=== PATIENT | male | born 1970 | race Caucasian/White ===

== ENCOUNTER → 2017-05-27 | Outpatient (CLI) | payer OTHER ==
--- NOTE | 2017-05-27 10:43 | DIAGNOSTIC IMAGING REPORT ---
RIGHT KNEE 3 VIEWS CLINICAL HISTORY: Medial knee pain. FINDINGS: AP, lateral, and sunrise views of the right knee are obtained. No prior studies are available for comparison at the time of dictation. The skeletal structures are well mineralized. No fracture is seen. There is mild degenerative narrowing in the medial and patellofemoral compartments. A calcified fabella is incidentally noted. Patellar enthesophytes are observed. No large joint effusion is identified. The overlying soft tissues are within normal limits. IMPRESSION: No acute bony abnormality is seen in the right knee. Electronically signed by: Kerwin Thapa M.D. 05/27/2017 10:42 AM Dictated Date/Time: 05/27/2017 10:41 AM
== END | disposition home or self-care (01) ==
LOC: C.RAD1850 09:56
PROVIDERS: ATTEND Nurse Practitioner Adult Health
DX: M25.561 Pain in right knee (principal)

== ENCOUNTER 2024-02-13 06:52 | Observation (INO) ==
--- NOTE | 2024-01-02 12:09 | PAT Medication Instructions ---
Medication Instructions Date of Service January 02, 2024 Home Medications aspirin 325 mg tablet 325 mg PO DAILY PRN Pain multivitamin 1 tab PO DAILY cholecalciferol (vitamin D3) 50 mcg (2,000 unit) capsule (Vitamin D3) 50 mcg PO DAILY ASK your prescriber and surgeon aspirin 325 mg tablet 325 mg PO DAILY PRN Pain DO NOT take the morning of surgery multivitamin 1 tab PO DAILY cholecalciferol (vitamin D3) 50 mcg (2,000 unit) capsule (Vitamin D3) 50 mcg PO DAILY NOTHING TO EAT OR DRINK AFTER MIDNIGHT Other Notes If you have any questions please call us at [phone] or [phone] or [phone] or [phone]
--- NOTE | 2024-01-13 13:57 | Anesthesiology Consultation ---
Date of Service January 13, 2024 Assessment & Plan (1) Encounter for pre-operative examination: - Infectious disease screening: Per assessment on 01/13/24: No known recent infectious disease contacts or current infectious disease symptoms. - Outpatient joint assessment: Pt currently scheduled for inpatient pathway. If surgeon requests review for outpatient joint pathway, patient is an acceptable candidate for outpatient joint program from anesthesia standpoint pending surgeon's office assessment that patient is motivated, has good support and completes [facility] Day [facility] Program preop requirements. Chart Review Chart Review: Acceptable Risk for Surgery and Patient seen in Pre Admission Testing Teaching & Discussion Pre-Anesthesia Teaching/Discussion Notes: Instructed NPO after midnight before surgery,except medications with 15 cc of water. Medication instructions provided according to the PAT guidelines. History Surgery Operation Date: 02/13/24 11:10 Proposed Procedures p Left Total Knee Arthroplasty - Dami Andujar DO Height/Weight Height: 5 ft 11 in Weight: 98.9 kg Allergies Allergy/AdvReac Type Severity Reaction Status Date / Time No Known Allergies Allergy Verified 01/02/24 10:55 Medications Home Medications Medication Instructions Recorded Confirmed Last Taken aspirin 325 mg tablet 325 mg PO DAILY PRN Pain 09/25/20 01/02/24 Unknown multivitamin 1 tab PO DAILY 09/25/20 01/02/24 Unknown cholecalciferol (vitamin D3) 50 50 mcg PO DAILY 01/02/24 01/02/24 Unknown mcg (2,000 unit) capsule (Vitamin D3) Fish Oil 1 tab PO DAILY 01/13/24 01/13/24 Unknown Past Medical History Medical History Circadian rhythm sleep disorder History of COVID-2019 Osteoarthritis Exercise / Class Metabolic Activity II 4-5 Yardwork/Stairs/Walk up hill Past Family History Family History Denies family history of Ovarian cancer Prostate cancer Myocardial infarction Breast cancer Colorectal cancer Past Surgical History Surgical History History of knee surgery Right x 2 Meniscus tear History of tooth extraction Past Anesthesia History No Hx of Anesthesia Complications and No Family Hx of Anesthesia Complications History of PONV No Hx of PONV and No Hx of Motion Sickness Social History Smoking Status: Former smoker Smoking cigarettes per day: Quit years ago Do You Dip or Chew Tobacco: No Hx Alcohol Use: Yes Alcohol type: beer alcohol intake frequency: holidays/special occasions only Hx Substance Use: No substance use type: does not use Review of Systems + Snoring. No witness apnea. Patient denies chest pain, shortness of breath, dyspnea on exertion, fever, chills, cough, wheezing, palpitations. Physical Exam Vital Signs BP 112/74 P 55 TEMP 98.3 SP02 97%RA RESP 16 Physical Full cervical extension range of motion. Full TMJ range of motion. TMD > 3.5 finger breaths Mallampati Score II Dentition: missing molars, possible left upper crown on molar (patient states thinks it "fell out") Lungs: clear throughout to auscultation Cardiac: regular rate and rhythm, no murmurs noted Spine: normal Carotid arteries: negative bruit Extremities: no LE edema Lab Results Anesthesia Preop Results Results Anesthesia Widget: WBC 9.09 K/ul (4.8-10.8) 01/13/24 Hgb 14.0 g/dl (14.0-18.0) 01/13/24 Hct 42.3 % (42.0-52.0) 01/13/24 Plt 252 K/uL (130-400) 01/13/24 Na 137 mmol/L (136-145) 01/13/24 K 4.2 mmol/L (3.5-5.1) 01/13/24 Cl 102 mmol/L (98-107) 01/13/24 CO2 29 mmol/L (21-32) 01/13/24 BUN 20 mg/dl (6-23) 01/13/24 Creat 1.03 mg/dl (0.6-1.4) 01/13/24 Glucose Level 124 mg/dl (70-99(Fasting)) H 01/13/24 PT 10.4 Seconds (9.0-12.0) 01/13/24 PTT 28 Seconds (21-31) 01/13/24 INR 1.0 (0.9-1.1) 01/13/24 Blood Type O Positive 01/13/24 Antibody Screen NEGATIVE 01/13/24 Testing Electrocardiogram Date: 01/13/24 SB at 56bpm. "Otherwise normal ECG" Chest X-Ray Date: 01/18/24 Findings: + NAD
--- NOTE | 2024-02-09 09:23 | History & Physical Report ---
Date of Service February 09, 2024 Assessment & Plan (1) Osteoarthritis of left knee: We will proceed with a left total knee arthroplasty. Postoperatively she will be started on aspirin for DVT prophylaxis and kept overnight in the hospital for postop medical management. She plans to use energy physical therapy upon discharge. History of Present Illness Chief Complaint: Osteoarthritis of the left knee. Primary Care Provider: Melanie Warren MD Sona is a pleasant 53-year-old male who has been dealing with chronic bilateral knee pain left worse than right. He has a history of 2 prior meniscal surgeries to his left knee. Unfortunately, he isstill dealing with a lot of medial sided knee pain. It is to the point where he ishaving trouble doing simple a ctivities. He is having trouble going up and down stairs. He is missing time from work. X-rays and clinical examination been diagnostic for advanced arthritis of the left knee. After failing conservative treatment, she has elected to proceed with a left total knee arthroplasty. Allergies Allergy/AdvReac Type Severity Reaction Status Date / Time No Known Allergies Allergy Verified 01/02/24 10:55 Home Medications Medication Instructions Recorded Confirmed Type aspirin 325 mg tablet 325 mg PO DAILY PRN Pain 09/25/20 01/02/24 History multivitamin 1 tab PO DAILY 09/25/20 01/02/24 History cholecalciferol (vitamin D3) 50 50 mcg PO DAILY 01/02/24 01/02/24 History mcg (2,000 unit) capsule (Vitamin D3) Fish Oil 1 tab PO DAILY 01/13/24 01/13/24 History Past Med/Surg History Problem List Encounter for pre-operative examination Epicondylitis, lateral (tennis elbow) Medical History History of ID2019 Circadian rhythm sleep disorder Osteoarthritis Surgical History History of tooth extraction History of knee surgery Right x 2 Meniscus tear Family History Denies family history of Ovarian cancer Prostate cancer Myocardial infarction Breast cancer Colorectal cancer Social History (Reviewed 02/09/24 @ 09:22 by MARIBELL Ingram Smoking Status: Former smoker Tobacco Type: E-cigarettes / Vaping Cigarettes Per Day: Quit years ago; Second Hand Exposure: No; Do You Dip or Chew Tobacco: No; Tobacco Cessation Education Requested by Patient: No Hx Alcohol Use: Yes Alcohol type: beer Alcohol Intake Frequency: Monthly or Less Hx Substance Use: No Preferred Language: Polish Communication Ability: Effective Protective Services Case Worker Required: No Beliefs That Will Affect Care: None marital status: Current Living Situation: Family current occupational status: employed Other Information That Helps Us Care for You: No Feels Safe at Home: Yes Safety Concerns: Feels Safe At This Time caffeine: Yes (Soda) Dental Care, Regularly: No Physical Activity Frequency: Daily Seatbelt Use: always Sunscreen Use: No Assistive Devices: Cane and Glasses Review of Systems All systems reviewed & are unremarkable except as noted in HPI & below. Physical Exam Physical examination of the left knee, she has a slight varus deformity. She has tenderness palpation of the distal medial femoral condyle and over the medial joint line.. Constitutional WD/WN, vitals as above Eyes PERRL, conjunctivae normal, anicteric sclerae ENMT external ear and nose normal, oropharynx normal Neck trachea midline, no thyromegaly Respiratory normal respiratory effort Cardiovascular RRR, no murmur, no edema Gastrointestinal (Abdomen) normal bowel sounds, soft, nontender, no hepatosplenomegaly Psychiatric A+Ox3, euthymic affect Results & Data Results & Data Laboratory Results . Diagnostic Findings X-rays of the left knee show advanced osteoarthritis with joint space narrowing, osteophyte summation, and [id number] articulation. PG Care Time/CCT Total # of Minutes Spent Total Time Spent with Patient: Total time spent is greater than 50% in coordination of care (as documented) at patient's floor/unit and/or counseling patient: Coding Level of Care Code None Diagnoses Osteoarthritis of left knee M17.12
[2024-02-13] MEDS ORDERED: ROPIVACAINE 0.5% 5 MG/ML 30 ML VIAL ONE (07:10)
[2024-02-13] MEDS: LR 500ML BOLUS, THEN 15ML/HR IV SCH (07:35)
[2024-02-13] MEDS: dexAMETHasone**PF** 10 MG/ML VIAL IV SCH (07:36)
[2024-02-13] MEDS: GABAPENTIN 900 MG DOSE PO SCH (07:36)
[2024-02-13] MEDS: FAMOTIDINE 20 MG TAB PO SCH (07:36)
[2024-02-13] MEDS: ACETAMINOPHEN 500 MG TAB PO SCH ×2 (07:37→13:26)
[2024-02-13] MEDS ORDERED: fentaNYL citrate PF 100 MCG/2 ML VIAL ONE (07:38)
[2024-02-13] MEDS ORDERED: MIDAZOLAM HCL 1 MG/ML 2ML VIAL ONE (07:40)
[2024-02-13] MEDS ORDERED: PROPOFOL IV EMULSION 10 MG/ML 20 ML VIAL IV ONE (07:41)
[2024-02-13] MEDS ORDERED: ONDANSETRON INJ 2 MG/ML 2 ML VIAL ONE (07:41)
--- NOTE | 2024-02-13 08:08 | History & Physical Bridge Note ---
Date of Service February 13, 2024 History & Physical Bridge Note I have examined the patient, reviewed the History & Physical and in the interval since the performance of the History & Physical I have noted the following changes of clinical significance: no changes noted
[2024-02-13] MEDS ORDERED: ONDANSETRON INJ 2 MG/ML 2 ML VIAL IV PRN ×2 (08:38→12:48)
[2024-02-13] MEDS ORDERED: fentaNYL citrate PF 100 MCG/2 ML VIAL IV PRN (08:38)
[2024-02-13] MEDS ORDERED: KETOROLAC 30 MG/ML VIAL IV PRN (08:38)
[2024-02-13] MEDS ORDERED: ePHEDrine sulfate 50 MG/ML AMP IV PRN (08:38)
[2024-02-13] MEDS ORDERED: ATROPINE SULFATE 0.1 MG/ML 10ML SYR IV PRN (08:38)
[2024-02-13] MEDS: TRANEXAMIC ACID 1,000 MG **IV Pre-op IV SCH (08:53)
[2024-02-13] MEDS: ceFAZolin 2000MG 2,000 MG/15 ML SYR IV SCH ×2 (09:06→16:46)
[2024-02-13] MEDS: ORTHO JOINT ANESTHETIC ONE (09:41)
[2024-02-13] MEDS ORDERED: SODIUM CHLORIDE 0.9% PF INJ 10 ML VIAL ONE (09:45)
[2024-02-13] MEDS ORDERED: ePHEDrine sulfate 50 MG/ML AMP ONE (09:45)
[2024-02-13] MEDS: ROPIV 0.5% 246mg, Ketorolac 30mg, EPINEPHrine 0.5mg in NSS INFIL SCH (10:05)
[2024-02-13] MEDS: TRANEXAMIC ACID 1,000 MG **IV Intra-op IV SCH (10:09)
--- NOTE | 2024-02-13 10:13 | Operative Report ---
PG Post Operative Report Pre & Post Diagnosis Operation Date: 02/13/24 09:00 Pre-Op Diagnosis: Osteoarthritis of left knee Post-Op Diagnosis: Osteoarthritis of left knee I identified the patient and participated in the time-out.: Yes Procedure Operation Date: 02/13/24 09:00 Actual Procedures p Left Total Knee Arthroplasty(Left) - Dami Andujar DO Surgeon Dami Andujar DO Auto Mechanic Dami Cummings PA-C Estimated Blood Loss 30 Findings Consistent with Post-Op Diagnosis Specimens Left femoral and tibial bone Description of Procedure Implants used: I used a Rashaun Persona total knee arthroplasty system with a size 9 standard PS femur, F tibia, 34 oval patella, and a size 12 CPS polyethylene bearing. All components were cemented in place with Biomet cement. Sona arrived [facility] for the above procedure. He was seen in the preoperative holding area and the operative extremity was identified and signed. He was given a preoperative antibiotic, TXA, a spinal anesthetic and an adductor nerve block. He was taken back to the operating room and laid on the table in supine position. He was given basic sedation. The operative knee was then prepped and draped in sterile fashion. A timeout was done, and the patient and the operative extremity was properly identified. A midline incision was made directly over the patella. Dissection was taken down to the extensor mechanism. A subvastus arthrotomy was used. The medial retinaculum was released and the fat pad was mostly excised. The knee was flexed and the ACL, PCL, and meniscus were removed. A drill was sent down the center of the femoral canal followed by an intramedullary kimber. Off that kimber a distal femoral cutting block was placed. 9 mm was resected off the distal femur at 5 of valgus. A posterior referencing AP sizing guide was then placed on the distal femur. The femur measured to be a size 9. 2 drill holes were placed in 3 of external rotation. A 4-in-1 cutting block was then impacted into place. Anterior, posterior, and chamfer cuts were then made. The proximal tibia was then exposed. An external tibial alignment guide was placed. A tibial cut guide was then anchored in place and the proximal tibia was then resected. The posterior aspect of the knee was then opened up and any additional meniscus fragments and osteophytes were removed. The tibia measured to be a size F. The tibial plate was then placed in the appropriate rotation and the tibia was drilled and punched. Trial components were then placed. I used a size 12 CPS polyethylene insert. The knee was brought through a full range of motion and felt to be stable. The peg holes for the femoral component were then drilled. The patella was then everted and 9 mm was resected off the posterior aspect of the patella. The patella measured to be a size 34 oval. 3 peg holes were then drilled. A trial patella was placed. The knee was once again brought through a full range of motion and felt to be stable. Trial components were then removed. The surrounding soft tissues were injected with 100 cc of an orthopedic pain control cocktail. All components were then cemented into place with Biomet cement. The final polyethylene insert was then snapped into place. Once cement was dry the tourniquet was deflated. Hemostasis was obtained. A dilute betadyne lavage was then done for 3 minutes. The joint was then irrigated with normal saline solution. The subvastus arthrotomy was then closed with #1 Vicryl suture. The skin was closed with 2-0 Vicryl, 3-0V lock suture, and uri. A soft compressive dressing was placed. He was then transferred to a hospital bed and taken to the postanesthesia care unit in stable condition. He tolerated the procedure well. Dami Cummings PA-C, was present for the entire procedure. He was critical for patient positioning, prepping, draping, retraction exposure, wound closure and application of sterile dressing. I attest to the content of the Intraoperative Record and any orders documented therein. Any exceptions are noted below.
--- NOTE | 2024-02-13 11:39 | XRay Report ---
XR knee LT 1 or 2V routine HISTORY: 54 years-old Male Surgical Post Op left knee arthroplasty COMPARISON: 09/16/2023 TECHNIQUE: 2 views of the left knee FINDINGS: Total bone arthroplasty with patellar resurfacing. Anterior midline skin uri with expected postop erative soft tissue swelling and deep tissue air. No acute fracture or dislocation. IMPRESSION: Total arthroplasty with expected postoperative changes. ACT 112: Negative or not required by law. The above report was generated using voice recognition software. It may contain grammatical, syntax o r spelling errors. Electronically signed by: Major Rowan M.D. 02/13/2024 11:38 AM
--- NOTE | 2024-02-13 12:22 | Anesthesiology Progress Note ---
Date of Service February 13, 2024 Anesthesia Post Procedure Vital Signs Vital Signs: Temp Pulse Resp BP Pulse Ox O2 Del Method 02/13/24 12:15 69 18 110/59 L 96 Room Air 02/13/24 12:05 71 12 120/60 94 Room Air 02/13/24 11:55 59 L 15 133/80 97 Room Air 02/13/24 11:45 54 L 11 L 115/63 95 Room Air 02/13/24 11:35 52 L 14 110/62 97 Room Air 02/13/24 11:25 52 L 14 106/57 L 97 Room Air 02/13/24 11:15 52 L 13 107/57 L 96 Room Air 02/13/24 11:05 36.4 C L 56 L 13 118/66 97 Room Air 02/13/24 10:55 57 L 10 L 113/68 97 Room Air 02/13/24 10:45 61 15 124/65 98 Room Air 02/13/24 10:35 36.6 C 55 L 11 L 115/59 L 97 Room Air 02/13/24 07:25 36.5 C 48 L 18 133/78 98 Room Air Transfer of Care Handoff Completed per policy Notes Mental Status: alert / awake / arousable Patient Amnestic to Procedure: Yes Nausea / Vomiting: adequately controlled Pain: adequately controlled Airway Patency, RR, SpO2: stable & adequate BP & HR: stable & adequate Hydration State: stable & adequate Neuraxial Anesthesia: was administered and sensory block is resolving Anesthetic Complications: no major complications apparent
[2024-02-13] MEDS ORDERED: NALOXONE HCL 0.4 MG/1 ML VIAL/CARP IV PRN (12:48)
[2024-02-13] MEDS ORDERED: METOCLOPRAMIDE HCL INJ 5 MG/ML 2 ML VIAL IV PRN (12:48)
[2024-02-13] MEDS ORDERED: bisacodyL 10 MG SUPP PR PRN (12:48)
[2024-02-13] MEDS ORDERED: MAGNESIUM HYDROXIDE SUSP 30 ML UDC PO PRN (12:48)
[2024-02-13] MEDS ORDERED: HYDROmorphone INJ 0.5 MG/0.5 ML SYR IV PRN (12:48)
[2024-02-13] MEDS: LR 60ML/HR IV SCH (13:00)
[2024-02-13] MEDS: SODIUM CHLORIDE 0.9% 1,000 ML IV SCH (13:24)
[2024-02-13] MEDS: KETOROLAC 30 MG/ML VIAL IV SCH (13:26)
[2024-02-13] MEDS: oxyCODONE HCL IR 5 MG TAB (IMMEDIATE RELEASE) PO PRN (17:52)
[2024-02-13] MEDS: ASPIRIN 81 MG ECTAB PO SCH (21:25)
[2024-02-13] MEDS: DOCUSATE SODIUM 100 MG CAP PO SCH (21:25)
[2024-02-13] MEDS: SENNA 8.6 MG TAB PO SCH (21:27)
[2024-02-14 04:41] VITALS: O2SAT 97
--- NOTE | 2024-02-14 06:47 | Orthopedic Progress Note ---
Date of Service February 14, 2024 Assessment & Plan (1) Status post left knee replacement: Overall he is doing very well. He is not having much pain in his left knee. He will be seen by physical therapy today for ambulation and range of motion exercises. He is on aspirin for DVT prophylaxis. The nursing staff can change his dressing after physical therapy. He can be discharged to home later today. He will follow-up with orthopedics in 2 weeks. Marguerite Magallanes was seen and examined at bedside this morning. Overall he is doing very well. He is not having much pain in the left knee. He has been up and ambulating to the bathroom. He has no complaints.. Review of Systems All systems reviewed & are unremarkable except as noted in HPI & below. Physical Exam On physical examination of the left knee, the dressing is clean and dry. His leg is out full extension. He has active dorsiflexion plantarflexion of his left ankle.. Results & Data Results & Data Laboratory Results . Diagnostic Findings Postoperative x-rays of the left knee show the prosthesis to be in anatomic alignment without any evidence of fracture, his cage, or loosening.. PG Care Time/CCT Total # of Minutes Spent Total Time Spent with Patient: Total time spent is greater than 50% in coordination of care (as documented) at patient's floor/unit and/or counseling patient: Coding Level of Care Code 67826 Post Operative Follow-Up Diagnoses Status post left knee replacement Z96.652
--- NOTE | 2024-02-14 06:48 | Discharge Summary ---
Date of Service February 14, 2024 Admission HPI (Per Admitting) Sona is a pleasant 53-year-old male who has been dealing with chronic bilateral knee pain left worse than right. He has a history of 2 prior meniscal surgeries to his left knee. Unfortunately, he isstill dealing with a lot of medial sided knee pain. It is to the point where he ishaving trouble doing simple activities. He is having trouble going up and down stairs. He is missing time from work. X-rays and clinical examination been diagnostic for advanced arthritis of the left knee. After failing conservative treatment, she has elected to proceed with a left total knee arthroplasty. Admission Exam (Per Admitting) Physical examination of the left knee, she has a slight varus deformity. She has tenderness palpation of the distal medial femoral condyle and over the medial joint line.. Principal Diagnosis Same as "Discharge Diagnosis" noted below under Discharge Instructions. Discharge Exam On physical examination of the left knee, the dressing is clean and dry. His leg is out full extension. He has active dorsiflexion plantarflexion of his left ankle.. Discharge Data Procedures Performed Operation Date: 02/13/24 09:00 Actual Procedures p Left Total Knee Arthroplasty(Left) - Dami Andujar DO Ordered Studies 02/13/24 05:00 US - OR guided needle placemen Routine Hospital Course (1) Status post left knee replacement: On February 13, 2024 Sona arrived at [facility] and underwent a left knee replacement without complication. He had a spinal anesthetic. Postoperatively he was started on aspirin for DVT prophylaxis and transferred to the general orthopedic floors. His hospital course was uneventful. On postop day #1, his vital signs were stable and his pain was well-controlled. He was able to participate well with physical therapy doing ambulation and range of motion exercises. He was then discharged to home. He will follow with orthopedics in 2 weeks. PG Care Time/CCT Total # of Minutes Spent Total Time Spent with Patient: Total time spent is greater than 50% in coordination of care (as documented) at patient's floor/unit and/or counseling patient: Discharge Plan Discharge Items Patient Disposition: Home - Self-Care Reason For Visit: Degenerative Joint Disease Left Knee Discharge Diagnosis: Left knee replacement Activity: Per Instructions section Non-emergency contact: Surgeon Call non-emergency contact if: your wound has increased redness and your wound has increased drainage Follow-up/Referrals: Melanie Warren MD [Primary Care Provider] - Diet: Regular Addtl Attending Provider Instructions: Activity and Therapy Recommendations: * If you are using [facility] then therapy will be provided at your home until they feel you have accomplished all of your goals. * If you are using [facility] then Physical Therapy will be provided until they feel you are ready to start Outpatient Physical Therapy. * If you are not using home therapy then Outpatient Physical Therapy should start about 3-5 days from your day of surgery. Therapy will last about 6-10 weeks * It is important not to put a pillow under your knee when you are relaxing or sleeping. It is just as important to make sure you are getting your knee perfectly straight as it is to regain your knee bend. * You were shown a series of exercises in the hospital. Do these exercises three times each day including the exercises you were shown in physical therapy. * Get up and walk several times each day. For the first four weeks, try not to stand or walk for more than one hour at a time. If you do stand or walk for more than one hour, you will not hurt anything, but your leg will likely swell. * As you feel comfortable, you may change from the walker or crutches to a cane and then to independent walking. Medications: * Narcotic You will likely be sent home from the hospital with a prescription for the narcotic pain medication that worked best throughout your stay. * Cefadroxil -take the antibiotic twice a day for 10 days to help prevent infection. * Aspirin Most patients will be required to take Aspirin 81mg twice a day for 6 weeks after surgery. This is obtained [id number] and a prescription is not necessary. * Other medications may be prescribed for specific circumstances. If you have any questions, please call the office at . * Resume previous home medications unless otherwise instructed TEDs/Elastic Stockings: The white elastic stockings help limit swelling and prevent blood clots from forming in your legs.~ The more you wear them, the more they work. Wear them for six weeks. Dressing Care: The dressing can be changed after physical therapy on postop day #1. Daily dry dressing changes for a few days, especially if the incision is still draining some. If the incision is not draining then you may leave the uri open to air. If there is a little bit of drainage or if the uri are getting stuck on your clothing then cover the incision with a dry dressing. The uri will be removed at your 2 week follow-up appointment. Showering: You may shower 5 days from the day of surgery as long as the incision is no longer draining. You may shower with the uri exposed. Let soapy water run over the uri and pat them dry. Do not scrub or soak the incision. Diet: You may resume your previous diet. Things To Watch For: * Drainage from the incision site that occurs more than one week after your surgery. * Increased redness at the incision site. * Fever above 102 degrees Fahrenheit. * Unusual chest pain or shortness of breath. * Call [facility] at with any of the above problems Follow-Up Visit: Follow-up with Dr. Andujar's PA (Dami Cummings) 2-3 weeks after your day of surgery. He will remove your uri and answer any questions. If you have any additional questions or concerns, Dr Andujar is usually in the office at the same time and will be available An appointment was probably scheduled when you signed-up for surgery in the office. If you have any questions call Office Instructions: More detailed instructions as well as Frequently Asked Questions were provided in a folder by our office when you signed-up for surgery. Please review these instructions when you get home. If you have any further questions or concerns, please feel free to call the office at [phone] Pending Studies at Discharge: No Stand-Alone Forms: My [facility], Smoking Cessation Medications and DC Order Prescriptions: New oxycodone 5 mg Tablet 5 mg PO Q4H PRN (Reason: pain) Qty: 30 0RF cefadroxil 500 mg capsule 500 mg PO BID 10 Days Qty: 20 0RF aspirin 81 mg Tablet,Delayed Release (Dr/Ec) 81 mg PO BID 42 Days Qty: 84 0RF Continued multivitamin Tablet 1 tab PO DAILY cholecalciferol (vitamin D3) [Vitamin D3] 50 mcg (2,000 unit) Capsule 50 mcg PO DAILY Fish Oil 1 tab PO DAILY Held aspirin 325 mg tablet 325 mg PO DAILY PRN (Reason: Pain) Hold Instructions: Resume on 03/27/24. Discharge Orders: Discharge Order (Routine); Ordered 02/14/24 Ordered By: Dami Andujar Admission Data Admit Date/Time: 02/13/24 10:34 Attending Provider: Dami Andujar Admit Provider: Dami Andujar Primary Care Provider: Melanie Warren
[2024-02-14 07:18] VITALS: BP 108/66; PULSE 55; RESP 16; TEMP 99
[2024-02-14] MEDS: MULTIVITAMIN TAB PO SCH (07:38)
[2024-02-14] MEDS: dexAMETHasone 4 MG TAB PO SCH (07:38)
== END 2024-02-14 11:10 | disposition home or self-care (01) ==
LOC: 3E 06:52 → ASU 06:52